=== PATIENT | female | born 1995 | race Two or more races ===

== ENCOUNTER 2024-09-10 20:00 | Emergency (ER) | payer MEDICAID, SELFPAY ==
[2024-09-10 20:01] VITALS: BMI 29.5
[2024-09-10 20:31] VITALS: BP 130/79; PULSE 85; RESP 18; TEMP 36.8; O2SAT 97; BMI 29.5
--- NOTE | 2024-09-10 20:59 | XR_ITS ---
Examination: Complete OB ultrasound greater than 14 weeks Date and time of exam: September 10, 2024 2130 hrs. Indications: Pelvic pain radiating to the back beginning yesterday getting worse Findings: Viable intrauterine single fetus with single amniotic sac presentation breech Cardiac motion 143 BPM Placenta anterior grade 1 no abruption Umbilical cord insertion seen Amniotic fluid index 14 cm Cervix 4.8 cm Right ovary 2.4 x 2.1 cm arterial flow Left ovary 5.2 x 4.8 cm 4.1 x 4.0 cm cyst. Composite estimated gestational age based on BPD, head circumference, abdominal circumference, femur length is 19 weeks 2 days Estimated weight 269 g. Survey of intracranial anatomy, spinal anatomy, abdominal anatomy, four-chamber heart performed with no abnormalities identified. Impression: Viable intrauterine gestation breech presentation.
--- NOTE | 2024-09-10 20:59 | PD.EDRME ---
Rapid Medical Screening Exam ON LICENSE OF [facility] Arrival date/time: 09/10/24 20:00 28F at approximately 18 weeks and with no significant PMH presents to ED with back/flank pain and dysuria. There is also some vaginal discharge, but patient denies concern for STD. There is also pain with intercourse. Chief Complaint: Back Pain/Injury Vital signs: Vital Signs Temperature 98.2 F 09/10/24 20:31 Pulse Rate 85 09/10/24 20:31 Respiratory Rate 18 09/10/24 20:31 Blood Pressure 130/79 09/10/24 20:31 Pulse Oximetry (%) 97 09/10/24 20:31 Oxygen Delivery Method Room Air 09/10/24 20:31
[2024-09-10 21:42] LABS: Collection Type, Urine Clean Catch
[2024-09-10 21:44] LABS: Basophils % (Auto) 0 % (0-2.5); Eosinophils # (Auto) 0.1 Thou/mm3 (0.0-0.5); Eosinophils % (Auto) 1 % (0-10); Hematocrit 33.3 % (36.0-46.0); Hemoglobin 11.4 g/dL (12.0-16.0); Immature Granulocytes % (Auto) 1 % (0-0); Immature Granulocytes Auto 0.07 Thou/mm3 (0.00-0.00); Lymphocytes # (Auto) 2.1 Thou/mm3 (1.0-4.8); Lymphocytes % (Auto) 19 % (10-50); Mean Corpuscular HGB Conc 34.2 g/dl (31.0-37.0); Mean Corpuscular Hemoglobin 29.8 pg (25.0-35.0); Mean Corpuscular Volume 87 fL (80-100); Monocytes # (Auto) 0.8 Thou/mm3 (0.0-0.8); Monocytes % (Auto) 7 % (0-12); Neutrophils # (Auto) 8.1 Thou/mm3 (1.8-7.7); Neutrophils % (Auto) 72 % (37-80); Nucleated Red Blood Cell % 0 /100 WBC (0); Platelet Count 247 Thou/mm3 (140-440); RDW Standard Deviation 40.8 fL (36.4-46.3); Red Blood Count 3.82 Miln/mm3 (4.00-5.20); White Blood Count 11.2 Thou/mm3 (3.6-11.0)
[2024-09-10 21:57] LABS: Bilirubin,Urine Negative (Negative); Blood,Urine 1+ (Negative); Clarity,Urine Turbid (Clear/Hazy); Color,Urine Lt-Yellow (Lt Yel-Yel); Glucose, Urine Negative (Negative); Ketones,Urine Negative (Negative); Leukocyte Esterase,Urine Negative (Negative); Nitrite,Urine Negative (Negative); Protein,Urine Trace (Neg - Trace); RBC,Urine 13 /hpf (0-3); Specific Gravity,Urine 1.019 (1.001-1.035); Squamous Epithelial Cell,Urine 10 /hpf (0-5); Urobilinogen,Urine Negative mg/dL (0.0-1.0); WBC,Urine 4 /hpf (0-5)
[2024-09-10 22:17] LABS: Alanine Aminotransferase 12 U/L (10-49); Albumin, Serum 3.9 gm/dL (3.5-5.0); Albumin/Globulin Ratio 1.6 (1.2-2.2); Alkaline Phosphatase 78 U/L (46-116); Anion Gap 5 (7-16); Aspartate Amino Transferase 17 U/L (0-34); BUN/Creatinine Ratio 14 Ratio (12-20); Bilirubin,Total 0.3 mg/dL (0.3-1.2); Blood Urea Nitrogen 7 mg/dL (9-23); Calcium 8.9 mg/dL (8.3-10.6); Carbon Dioxide 24.2 mMol/L (20.0-31.0); Chloride 106 mMol/L (98-107); Creatinine (Component) 0.5 mg/dL (0.6-1.3); Estimated Creatinine Clearance 153.4 mL/min (>60); Globulin 2.5 gm/dL (2.3-3.5); Glucose 105 mg/dL (74-106); Osmolality,Calculated 268 (275-295); Potassium 3.6 mMol/L (3.4-5.1); Sodium 135 mMol/L (136-145); Total Protein 6.4 gm/dL (5.7-8.2); eGFR > 60 See Note
[2024-09-10 22:45] LABS: Beta HCG,Quantitative 10026 mIU/mL (<5.0)
[2024-09-10 23:10] VITALS: BP 118/67; PULSE 80; RESP 18; TEMP 36.8; O2SAT 97
[2024-09-10 23:26] VITALS: BP 135/73; PULSE 76; RESP 18; TEMP 36.4; O2SAT 100
--- NOTE | 2024-09-11 00:35 | PD.EDBACK ---
ED Back Injury Pain RME/HPI General Chief Complaint: Back Pain/Injury Stated Complaint: BACK PAIN Arrival date/time: 09/10/24 20:00 Limitations: no limitations RME / HPI RME / HPI Narrative: 09/10/24 20:00 28F at approximately 18 weeks and with no significant PMH presents to ED with back/flank pain and dysuria. There is also some vaginal discharge, but patient denies concern for STD. There is also pain with intercourse. ---- Dr. Baker's Main ED Evaluation: 28yo female who is ~18 weeks gestation presents to the ED for a chief complaint of mid-back pain x 2 days. Patient states her pain has progressively been getting worse, reporting her pain is now throughout her back. She reports associated N/V. Denies any aggravating or alleviating factors. Denies any history of similar symptoms. No known allergies. Patient saw her OB, Dr. Chris, yesterday, and was advised it was a normal check-up. Related Data Previous Rx's ?Medication ?Instructions ?Recorded acetaminophen 325 mg capsule 650 mg (2 x 325 mg) PO Q6H PRN 03/27/22 fever or pain #60 caps dicyclomine 20 mg tablet 20 mg PO TID PRN pain #30 tabs 08/07/23 ciprofloxacin HCl 500 mg tablet 500 mg PO BID #14 tabs 12/20/23 (Cipro) Allergies Allergy/AdvReac Type Severity Reaction Status Date / Time No Known Allergies Allergy Unknown Verified 09/10/24 20:03 Review of Systems Review of Systems Systems Reviewed: All systems reviewed, normal except as documented Past Medical History Past Medical History NEUROLOGIC: Negative Neurological Disorders CARDIAC: Negative Cardiac Disorders or Congestive Heart Failure RESPIRATORY: Positive Asthma; Negative Chronic Obstructive Pulmonary Disease (COPD) GASTROINTESTINAL: Negative Gastrointestinal Disorders GENITOURINARY: Negative Genitourinary Disorders or Renal Disease MUSCULOSKELETAL: Negative Musculoskeletal Disorders ENDOCRINE: Negative Endocrine Disorders, Diabetes Mellitus Type 1 or Diabetes Mellitus Type 2 HEMATOLOGIC: Negative Blood Disorders OTHER HISTORY: Positive Hospitalization; Negative Autoimmune Disease, Down Syndrome, Developmental Delay, Shingles, Falls, Blood Transfusions, Anesthesia Reactions, Chemotherapy, MRSA, VRSA, Vancomycin-Resistant Enterococci or Cancer Family History FAMILY HISTORY: Negative Family Psychiatric Problems, Family Respiratory Disorders, Family Cardiac Disorders, Family Gastrointestinal Problems, Family Cancer, Family Surgery or Family Anesthesia Reaction Surgical History SURGICAL: Negative Section Social History SMOKING STATUS: Never smoker ED Exam General Limitations: Present no limitations General appearance: Present alert, in no apparent distress and other (sitting up in the gurney) Head Head exam: Present atraumatic Eye Eye exam: Present normal appearance, PERRL and EOMI ENT ENT exam: Present normal exam, normal oropharynx and mucous membranes moist Neck Neck exam: Present normal inspection, full ROM and trachea midline Chest Chest inspection: Present normal inspection and symmetric chest wall rise Respiratory Respiratory exam: Present normal lung sounds bilaterally Cardiovascular Cardiovascular exam: Present regular rate, normal rhythm and normal heart sounds Abdominal Exam Abdominal exam: Present soft, normal bowel sounds and other (gravid to the umbilicus area) Extremities Exam Extremities exam: Present normal inspection and full ROM Back Exam Back exam: Present normal inspection and full ROM; Absent CVA tenderness (R), CVA tenderness (L), rashes or other (midline tenderness) Neurological Exam Neurological exam: Present alert, oriented X3 and CN II-XII intact Psychiatric Psychiatric exam: Present normal affect and normal mood Skin Skin exam: Present warm, dry, intact and normal color Course Quality Measures none Orders Category Date Time Status US OB >= 14 weeks Fetus Stat Exams 09/10/24 20:59 Completed Beta HCG,Quantitative Stat Lab 09/10/24 21:20 Completed CBC Stat Lab 09/10/24 21:20 Completed CMP [Comprehensive Metabolic Panel] Stat Lab 09/10/24 21:20 Completed UA [Urinalysis] Stat Lab 09/10/24 21:22 Completed Urine Culture Stat Lab 09/10/24 21:22 Received Acetaminophen Tab [Tylenol ES Tab] Med 09/11/24 00:35 Discontinued 1,000 mg PO X1 ONE Vital Signs Vital signs: Vital Signs Temperature 98.2 F 09/10/24 20:31 Pulse Rate 85 09/10/24 20:31 Respiratory Rate 18 09/10/24 20:31 Blood Pressure 130/79 09/10/24 20:31 Pulse Oximetry (%) 97 09/10/24 20:31 Oxygen Delivery Method Room Air 09/10/24 20:31 Pulse ox is 97% on room air, which is normal according to my interpretation. Back Pain / Injury Patient data External records reviewed:: [facility] previous records (Per chart review, patient was seen here on 12/20/23 for UTI.) Clinical information provided by:: patient Social determinants that could affect healthcare access:: none Patient has the following chronic illnesses:: asthma How is presenting disease/condition affected by chronic disease/condition?: uneffected by Evaluation data The following diagnostics were reviewed and interpreted by me:: lab results Lab and/or radiology exams considered but not ordered:: none Interpretation Summary: WBC count is slightly elevated at 11.2, [place] [address], UA shows 13 RBCs, according to my interpretation. Medications / Prescriptions Medications or Prescriptions considered but not ordered:: none Medication administrations:: Medication Administration History Discontinued Medications Acetaminophen (Acetaminophen 500 Mg Tablet) 1,000 mg PO X1 ONE Stop: 09/11/24 00:36 Last Admin: 09/11/24 00:41 Dose: 1,000 mg Documented By: SF see above Consultations Consultation(s) initiated? (list below): No Diagnosis Differential diagnosis back pain/injury: renal colic, pyelonephritis and other (UTI) Most likely diagnosis given after review of the tests above:: see below Admission Indicated Admission indicated?: not indicated Admission Request Was there a request for admission?: No Disposition Plan Disposition Plan: Discharge Discharge Attestation Discharge Attestation: The patient and all family members were given an opportunity to ask questions and understood the discharge instructions. Discharge instructions specifically effects, indications for sooner follow up or return to the emergency department, and the expected course of current diagnosis. Patient condition: Stable Discharge Plan Plan Patient Disposition: HOME (Self Care) Patient condition on transfer: Stable Prescriptions/Referrals Prescriptions/Med Rec: No Action acetaminophen 325 mg capsule 650 mg PO Q6H PRN (Reason: fever or pain) Qty: 60 0RF dicyclomine 20 mg tablet 20 mg PO TID PRN (Reason: pain) Qty: 30 0RF ciprofloxacin HCl [Cipro] 500 mg tablet 500 mg PO BID Qty: 14 0RF Referrals: Charli Chris MD [Primary Care Provider] - In 1 week Problem List Clinical Impression: Back pain Patient/Caregiver Discharge Instructions Education Materials: How Your Back Works Additional Instructions: Follow-up with Dr. Chris on Saturday. Please return to emergency department sooner if you are having any increasing pain, you feel like you are in labor, a bloody show or you Print Language: Citizen Of [place] Stand Alone Forms: Sofi Award Info., Patient Portal Info Letter
[2024-09-11] MEDS: ACETAMINOPHEN 500 MG TABLET 1000 MG PO (00:41)
== END 2024-09-11 00:49 | disposition home or self-care (01) ==
PROVIDERS: Physician Assistant; Emergency Provider Emergency Medicine; PCP Obstetrics & Gynecology
DX: O26.892 Other specified pregnancy related conditions, second trimester (principal); M54.6 Pain in thoracic spine; R10.2 Pelvic and perineal pain; Z3A.18 18 weeks gestation of pregnancy
CPT/HCPCS: 36415; 76805; 80053; 81001; 84702; 85025; 87086; 99284; A9270

== ENCOUNTER 2024-09-19 11:35 | Observation (INO) | payer MEDICAID, SELFPAY ==
[2024-09-19 11:40] VITALS: RESP 16; TEMP 37.3; O2SAT 97
[2024-09-19 11:54] LABS: Collection Type, Urine Clean Catch
[2024-09-19 12:07] VITALS: BP 116/68; PULSE 78
[2024-09-19 12:10] VITALS: TEMP 36.6
[2024-09-19 12:28] LABS: Bacteria,Urine 1+; Bilirubin,Urine Negative (Negative); Blood,Urine 3+ (Negative); Color,Urine Yellow (Lt Yel-Yel); Glucose, Urine Negative (Negative); Ketones,Urine 1+ (Negative); Leukocyte Esterase,Urine Positive (Negative); Nitrite,Urine Negative (Negative); PH,Urine 6.5 (5.0-7.0); Protein,Urine 2+ (Neg - Trace); RBC,Urine 375 /hpf (0-3); Specific Gravity,Urine 1.042 (1.001-1.035); Squamous Epithelial Cell,Urine 4 /hpf (0-5); WBC,Urine 415 /hpf (0-5)
[2024-09-19 12:29] LABS: Clarity,Urine Turbid (Clear/Hazy)
--- NOTE | 2024-09-19 12:36 | XR_ITS ---
Examination: Complete OB ultrasound greater than 14 weeks Date and time of exam: September 19, 2024 1316 hrs. Indications: 20 weeks with onset vaginal bleeding today Findings: Viable intrauterine single fetus with single amniotic sac presentation transverse head maternal right Cardiac motion 137 BPM Placenta anterior grade 1 no abruption Umbilical cord insertion 3 vessel seen Amniotic fluid index 17.4 cm Cervix 5.5 cm Ovaries obscured by bowel gas. Composite estimated gestational age based on BPD, head circumference, abdominal circumference, femur length is 21 weeks 2 days Estimated weight 400 g. Survey of intracranial anatomy, spinal anatomy, abdominal anatomy, four-chamber heart performed with no abnormalities identified. Impression: Viable intrauterine gestation transverse presentation Placenta anterior grade 1 no abruption or previa.
[2024-09-19 12:37] VITALS: BP 107/63; PULSE 93
[2024-09-19] MEDS: cefTRIAXone 1,000 MG, LIDOCAINE 1% 20 ML 2.1 ML IM (12:56)
[2024-09-19 13:07] VITALS: BP 111/55; PULSE 78
[2024-09-19 13:37] VITALS: BP 114/56; PULSE 78
== END 2024-09-19 15:15 | disposition home or self-care (01) ==
PROVIDERS: Admitting Provider Obstetrics & Gynecology; PCP Obstetrics & Gynecology; Visit Provider Obstetrics & Gynecology
DX: O26.892 Other specified pregnancy related conditions, second trimester (principal); Z3A.20 20 weeks gestation of pregnancy; R25.2 Cramp and spasm; O32.2XX0 Maternal care for transverse and oblique lie, not applicable or unspecified
CPT/HCPCS: 59025; 59899; 76805; 81001; 96372; J0696; J3490

== ENCOUNTER 2024-11-26 12:32 | Emergency (ER) | payer MEDICAID, SELFPAY ==
[2024-11-26 12:54] VITALS: BP 108/70; PULSE 109; RESP 16; TEMP 37.8; O2SAT 96; BMI 31.4
--- NOTE | 2024-11-26 13:01 | EDNOTE_ITS ---
Upper Respiratory Inf. RME/HPI General Chief Complaint: Flu Like Symptoms Stated Complaint: BODY ACHES AND HEAD PAIN X 3 DAYS; CALLED OB Time Seen by Provider: 11/26/24 12:57 Source: patient Arrival date/time: 11/26/24 12:32 29-year-old female with no known medical history presents to the emergency room with a chief complaint of bodyaches, headache, and intermittent fevers x 3 days. Mode of arrival: ambulatory Limitations: no limitations Related Data Home Medications ?Medication ?Instructions ?Recorded ?Confirmed vits no.124-ferrous fum 1 tab PO QDAY 4 09/19/24 27 mg iron-folic acid 800 mcg tablet ( Vitamin) Previous Rx's ?Medication ?Instructions ?Recorded acetaminophen 325 mg capsule 650 mg (2 x 325 mg) PO QI D PRN 11/26/24 fever or pain 7 days #30 caps Allergies Allergy/AdvReac Type Severity Reaction Status Date / Time No Known Allergies Allergy Unknown Verified 11/26/24 12:36 Review of Systems Review of Systems Systems Reviewed: All systems reviewed, normal except as documented Constitutional Constitutional: Reports system reviewed and no additional complaints, except as documented, Reports body ache(s), Denies fatigue, Reports fever(s), Reports headache(s) and Reports weakness Eyes Eyes: Reports system reviewed and no additional complaints, except as documented, Denies blurry vision and Denies change in vision ENT Ears, Nose, Mouth, and Throat: Reports system reviewed and no additional complaints, except as documented, Denies otalgia, Reports headache(s), Denies nasal congestion, Denies throat swelling and Denies vertigo Cardiovascular Cardiovascular: Reports system reviewed and no additional complaints, except as documented, Denies chest pain, Denies dyspnea and Denies dyspnea on exertion Respiratory Respiratory: Reports system reviewed and no additional complaints, except as documented, Denies chest congestion, Denies cough, Denies dyspnea, Denies dyspnea on exertion and Denies wheezing Gastrointestinal Gastrointestinal: Reports system reviewed and no additional complaints, except as documented, Denies abdominal pain, Denies cramping, Denies nausea and Denies vomiting Genitourinary Genitourinary: Reports system reviewed and no additional complaints, except as documented Musculoskeletal Musculoskeletal: Reports system reviewed and no additional complaints, except as documented and Denies back pain Integumentary/Breasts Skin/Breast: Reports system reviewed and no additional complaints, except as documented and Denies wounds Neurologic Neurologic: Reports system reviewed and no additional complaints, except as documented, Denies confusion, Reports headache(s), Denies lack of coordination, Denies vertigo and Reports weakness Psychiatric Psychiatric: Reports system reviewed and no additional complaints, except as documented, Denies anxiety, Denies confusion, Denies depression, Denies paranoia, Denies suicidal ideation and Denies tactile hallucinations Endocrine Endocrine: Reports system reviewed and no additional complaints, except as documented and Denies fatigue Hematologic/Lymphatic Hematologic/Lymphatic: Reports system reviewed and no additional complaints, except as documented and Denies lymphadenopathy Allergic/Immunologic Allergic/Immunologic: Reports system reviewed and no additional complaints, except as documented, Denies throat swelling, Denies urticaria and Denies wheezing Past Medical History Past Medical History NEUROLOGIC: Negative Neurological Disorders CARDIAC: Negative Cardiac Disorders or Congestive Heart Failure RESPIRATORY: Positive Asthma; Negative Chronic Obstructive Pulmonary Disease (COPD) GASTROINTESTINAL: Negative Gastrointestinal Disorders GENITOURINARY: Negative Genitourinary Disorders or Renal Disease MUSCULOSKELETAL: Negative Musculoskeletal Disorders ENDOCRINE: Negative Endocrine Disorders, Diabetes Mellitus Type 1 or Diabetes Mellitus Type 2 HEMATOLOGIC: Negative Blood Disorders OTHER HISTORY: Positive Hospitalization; Negative Autoimmune Disease, Down Syndrome, Developmental Delay, Shingles, Falls, Blood Transfusions, Anesthesia Reactions, Chemotherapy, MRSA, VRSA, Vancomycin-Resistant Enterococci or Cancer Family History FAMILY HISTORY: Negative Family Psychiatric Problems, Family Respiratory Disorders, Family Cardiac Disorders, Family Gastrointestinal Problems, Family Cancer, Family Surgery or Family Anesthesia Reaction Surgical History SURGICAL: Negative Section Social History SMOKING STATUS: Never smoker ED Exam General Limitations: Present no limitations General appearance: Present alert and in no apparent distress Head Head exam: Present atraumatic, normocephalic and normal inspection Eye Eye exam: Present normal appearance, PERRL and EOMI ENT ENT exam: Present normal exam, normal oropharynx and mucous membranes moist Neck Neck exam: Present normal inspection, full ROM and trachea midline Chest Chest inspection: Present normal inspection and symmetric chest wall rise Respiratory Respiratory exam: Present normal lung sounds bilaterally; Absent respiratory distress, wheezes, stridor, accessory muscle use or prolonged expiratory phase Cardiovascular Cardiovascular exam: Present regular rate, normal rhythm and normal heart sounds Abdominal Exam Abdominal exam: Present soft and normal bowel sounds Extremities Exam Extremities exam: Present normal inspection and full ROM Back Exam Back exam: Present normal inspection and full ROM Neurological Exam Neurological exam: Present alert, oriented X3 and CN II-XII intact Psychiatric Psychiatric exam: Present normal affect and normal mood Skin Skin exam: Present warm, dry, intact and normal color Course Quality Measures none Orders Category Date Time Status Bedside COVID-19 Antigen Test NOW Care 11/26/24 13:00 Completed Bedside Influenza A&B Antigen Test NOW Care 11/26/24 13:00 Completed Acetaminophen Tab [Tylenol ES Tab] Med 11/26/24 13:00 Discontinued 1,000 mg PO X1 ONE Vital Signs Vital signs: Vital Signs Temperature 100.1 F 11/26/24 12:54 Pulse Rate 109 H 11/26/24 12:54 Respiratory Rate 16 11/26/24 12:54 Blood Pressure 108/70 11/26/24 12:54 Pulse Oximetry (%) 96 11/26/24 12:54 Oxygen Delivery Method Room Air 11/26/24 12:54 O2 saturation 96% within normal limits Upper Respiratory Infection MDM Narrative MDM Narrative:: 29-year-old female with no known medical history presents to the emergency room with a chief complaint of bodyaches, headache, and intermittent fevers x 3 days. The patient is hemodynamically stable and in no apparent distress. Patient is currently 29 weeks but she is denying any vaginal bleeding pelvic pain or any OB complaints. COVID-19 test was positive. Lung sounds are clear bilaterally with no wheezing stridor or any respiratory d istress. Patient was discharged and educated to follow-up with primary care provider and return to the emergency room for any evidence of worsening signs or symptoms. Patient data External records reviewed:: [facility] previous records Clinical information provided by:: patient Social determinants that could affect healthcare access:: none Patient has the following chronic illnesses:: No chronic illness How is presenting disease/condition affected by chronic disease/condition?: no chronic disease Evaluation data The following diagnostics were reviewed and interpreted by me:: lab results and radiology exam(s) Lab and/or radiology exams considered but not ordered:: Labs and radiology exams considered in order Interpretation Summary: N/A Medications / Prescriptions Medications or Prescriptions considered but not ordered:: Medication given Medication administrations:: Medication Administration History Discontinued Medications Acetaminophen (Acetaminophen 500 Mg Tablet) 1,000 mg PO X1 ONE Stop: 11/26/24 13:01 Last Admin: 11/26/24 13:28 Dose: 1,000 mg Documented By: Medication given Consultations Consultation(s) initiated? (list below): No Diagnosis Upper Respiratory Differential Diagnosis: upper respiratory infection, sinusitis, viral infection, influenza and other (COVID-19) Most likely diagnosis given after review of the tests above:: COVID-19 Admission Indicated Admission indicated?: not indicated Admission Request Was there a request for admission?: No Disposition Plan Disposition Plan: Discharge Discharge Attestation Discharge Attestation: The patient and all family members were given an opportunity to ask questions and understood the discharge instructions. Discharge instructions specifically effects, indications for sooner follow up or return to the emergency department, and the expected course of current diagnosis. Patient condition: Stable Discharge Plan Plan Patient Disposition: HOME (Self Care) Disposition Comment: Stable Prescriptions/Referrals Prescriptions/Med Rec: New acetaminophen 325 mg capsule 650 mg PO QID PRN (Reason: fever or pain) 7 Days Qty: 30 0RF No Action Vitamin 27 mg iron- 800 mcg Tablet 1 tab PO QDAY Problem List Clinical Impression: COVID-19 Patient/Caregiver Discharge Instructions Education Materials: 2019-nCoV Additional Instructions: Please follow-up with your [facility] in the next 24 to 48 hours. Your COVID-19 test was positive. Please continue to take Tylenol for fever management. Please increase your oral and fluid intake. For any evidence of worsening signs or symptoms please return to the emergency room immediately Print Language: [place] Stand Alone Forms: Sofi Award Info., Work/School Release, Patient Portal Info Letter PA/[employer] Supervising Physician PA/[employer] Supervising Physician: Dr. Cleveland
[2024-11-26] MEDS: ACETAMINOPHEN 500 MG TABLET 1000 MG PO (13:28)
== END 2024-11-26 13:36 | disposition home or self-care (01) ==
LOC: SERX 13:50
PROVIDERS: Emergency Provider Emergency Medicine
DX: U07.1 COVID-19 (principal)
CPT/HCPCS: 87400; 87811; 99283; A9270

== ENCOUNTER 2025-01-17 21:13 | Observation (INO) | payer MEDICAID, SELFPAY ==
[2025-01-17 21:25] VITALS: BP 124/60; PULSE 87; RESP 15; RESP 99; TEMP 36.9; BMI 31.8
[2025-01-17 21:28] VITALS: BP 124/60; PULSE 81; RESP 15; TEMP 36.9
[2025-01-17] MEDS: ONDANSETRON INJ 2 MG/ML INJ 2 ML 4 MG IV (22:03)
[2025-01-17] MEDS: RINGERS LACTATED 1000 ML 1,000 ML 999 ML IV (22:06)
[2025-01-17 22:21] LABS: Basophils % (Auto) 0 % (0-2.5); Eosinophils % (Auto) 0 % (0-10); Hematocrit 34.1 % (36.0-46.0); Hemoglobin 11.5 g/dL (12.0-16.0); Immature Granulocytes % (Auto) 0 % (0-0); Immature Granulocytes Auto 0.04 Thou/mm3 (0.00-0.00); Lymphocytes # (Auto) 1.1 Thou/mm3 (1.0-4.8); Lymphocytes % (Auto) 13 % (10-50); Mean Corpuscular HGB Conc 33.7 g/dl (31.0-37.0); Mean Corpuscular Hemoglobin 27.1 pg (25.0-35.0); Mean Corpuscular Volume 80 fL (80-100); Monocytes # (Auto) 0.4 Thou/mm3 (0.0-0.8); Monocytes % (Auto) 4 % (0-12); Neutrophils # (Auto) 7.4 Thou/mm3 (1.8-7.7); Neutrophils % (Auto) 83 % (37-80); Nucleated Red Blood Cell % 0 /100 WBC (0); Platelet Count 226 Thou/mm3 (140-440); Red Blood Count 4.24 Miln/mm3 (4.00-5.20); White Blood Count 8.9 Thou/mm3 (3.6-11.0)
[2025-01-17 22:34] LABS: Alanine Aminotransferase 16 U/L (10-49); Albumin, Serum 3.6 gm/dL (3.5-5.0); Albumin/Globulin Ratio 1.3 (1.2-2.2); Alkaline Phosphatase 169 U/L (46-116); Anion Gap 10 (7-16); Aspartate Amino Transferase 13 U/L (0-34); BUN/Creatinine Ratio 14 Ratio (12-20); Bilirubin,Total 0.6 mg/dL (0.3-1.2); Blood Urea Nitrogen 7 mg/dL (9-23); Calcium 8.5 mg/dL (8.3-10.6); Calcium (Corrected) 8.8 mg/dL (8.5-10.1); Carbon Dioxide 22.3 mMol/L (20.0-31.0); Chloride 104 mMol/L (98-107); Creatinine (Component) 0.5 mg/dL (0.6-1.3); Estimated Creatinine Clearance 158.2 mL/min (>60); Globulin 2.7 gm/dL (2.3-3.5); Glucose 93 mg/dL (74-106); Osmolality,Calculated 269 (275-295); Potassium 3.7 mMol/L (3.4-5.1); Sodium 136 mMol/L (136-145); Total Protein 6.3 gm/dL (5.7-8.2); eGFR > 60 See Note
== END 2025-01-17 23:30 | disposition home or self-care (01) ==
PROVIDERS: Admitting Provider Obstetrics & Gynecology; Visit Provider Obstetrics & Gynecology
DX: O21.2 Late vomiting of pregnancy (principal); O26.893 Other specified pregnancy related conditions, third trimester; R10.10 Upper abdominal pain, unspecified; Z3A.37 37 weeks gestation of pregnancy
CPT/HCPCS: 36415; 59025; 59899; 80053; 85025; J2405; J7120

== ENCOUNTER 2025-09-22 13:57 | Emergency (ER) | payer OTHER, MEDICAID, SELFPAY ==
[2025-09-22 13:57] VITALS: BMI 27.9
[2025-09-22 14:13] VITALS: BP 125/78; PULSE 84; RESP 16; TEMP 37.2; O2SAT 99
--- NOTE | 2025-09-22 14:20 | PD.EDFALL ---
ED Fall Injury RME/HPI General Chief Complaint: Fall Stated Complaint: FELL OFF A LADDER Time Seen by Provider: 09/22/25 14:10 Arrival date/time: 09/22/25 13:57 29-year-old female patient came in for evaluation regarding a right knee injury. Patient was working in the field picking up or ingest, fell off the ladder, and her leg got stuck on the ladder about 5 steps, resulting in the pain and instability. Patient is unable to ambulate due to pain. Denies any other injury incident. Happened few minutes prior to ER visit. No medication was given prior to ER visit. Related Data Home Medications ?Medication ?Instructions ?Recorded ?Confirmed vits no.[id number]-ferrous fum 1 tab PO QDAY 09/19/24 01/17/25 27 mg iron-folic acid 800 mcg tablet ( Vitamin) Previous Rx's ?Medication ?Instructions ?Recorded ibuprofen 600 mg tablet 600 mg PO Q8H PRN pain #30 tabs 09/22/25 Allergies Allergy/AdvReac Type Severity Reaction Status Date / Time No Known Allergies Allergy Unknown Verified 09/22/25 14:00 Review of Systems Review of Systems Narrative Review of Systems: Review of system reviewed and within normal limits except mentioned in HPI ED Exam Narrative Physical exam: VITAL SIGNS: Reviewed. GENERAL APPEARANCE: Alert and interactive, follows commands, no acute distress, HEAD AND FACE: Non-traumatic. ENT: PERRL, pink conjunctivitis, eyelid no trauma, Mucous membrane moist. NECK: Supple, nontender, no nuchal rigidity. CHEST: No tenderness, no crepitus, no paradoxical movement, no retractions. LUNGS: Clear, well ventilated, symmetric, no rales, no wheezing, no ronchi, no stridor, good breath sounds bilaterally. HEART: Regular rate, regular rhythm, no murmur, no gallops. ABDOMEN: Soft, positive bowel sounds, nondistended, no guarding, nontender, no rebound, no masses, RECTAL: Deferred. GENITAL: Deferred. NEUROLOGICAL: Gross motor function intact sensory function intact, Appropriate for age. MUSCULOSKELETAL: low back nontender, full range of motion. EXTREMITIES: Right knee injury, laxity noted on the right knee positive valgus test, limited range of motion. Mild swelling, distal neurovascular status intact. SKIN: Color pink, dry, no rash, no lacerations, no abrasions, no contusions. LYMPHATICS: Deferred. Course Quality Measures none Orders Category Date Time Status Apply knee immobilizer ONCE Care 09/22/25 14:25 Completed Crutches .NOW Care 09/22/25 14:[address] knee RT wo con Stat Exams 09/22/25 16:12 Completed XR knee RT 3V Stat Exams 09/22/25 14:25 Completed Ketorolac Inj [Toradol Inj] Med 09/22/25 14:25 Discontinued 30 mg IM X1 ONE Vital Signs Vital signs: Vital Signs Temperature 99.0 F 09/22/25 14:13 Pulse Rate 84 09/22/25 14:13 Respiratory Rate 16 09/22/25 14:13 Blood Pressure 125/78 09/22/25 14:13 Pulse Oximetry (%) 99 09/22/25 14:13 Oxygen Delivery Method Room Air 09/22/25 14:13 Fall MDM Narrative MDM Narrative:: 29-year-old female patient came in for evaluation regarding a right knee injury. Patient was working in the field picking up or ingest, fell off the ladder, and her leg got stuck on the ladder about 5 steps, resulting in the pain and instability. Patient is unable to ambulate due to pain. Denies any other injury incident. Happened few minutes prior to ER visit. No medication was given prior to ER visit. CT scan of the right knee showed Positive for acute comminuted avulsion fractures off the lateral tibial plateau, the largest 11 mm Patient was placed on knee immobilizer, supplied with crutches. Patient was advised to follow-up closely with Melecio Jeronimo MD and for referral to orthopedic surgeon. Patient agrees with the plan. Patient data External records reviewed:: None Clinical information provided by:: patient and family Social determinants that could affect healthcare access:: none Patient has the following chronic illnesses:: None How is presenting disease/condition affected by chronic disease/condition?: no chronic disease Evaluation data The following diagnostics were reviewed and interpreted by me:: radiology exam(s) Lab and/or radiology exams considered but not ordered:: None Interpretation Summary: See above Medications / Prescriptions Medications or Prescriptions considered but not ordered:: None Medication administrations:: Medication Administration History Discontinued Medications Ketorolac Tromethamine (Ketorolac Inj 30 Mg/Ml Vial) 30 mg IM X1 ONE Stop: 09/22/25 14:26 Last Admin: 09/22/25 15:22 Dose: 30 mg Documented By: NADIA Toradol Consultations Consultation(s) initiated? (list below): No Diagnosis Fall Differential Diagnosis: other (Knee sprain, avulsion fracture tibial plateau, knee pain, status post fall) Most likely diagnosis given after review of the tests above:: Knee sprain, avulsion fracture tibial plateau Admission Indicated Admission indicated?: not indicated Admission Request Was there a request for admission?: No Disposition Plan Disposition Plan: Discharge Discharge Attestation Discharge Attestation: The patient and all family members were given an opportunity to ask questions and understood the discharge instructions. Discharge instructions specifically effects, indications for sooner follow up or return to the emergency department, and the expected course of current diagnosis. Patient condition: Stable Discharge Plan Plan Patient Disposition: HOME (Self Care) Discharge Disposition comment: Stable Prescriptions/Referrals Prescriptions/Med Rec: New ibuprofen 600 mg tablet 600 mg PO Q8H PRN (Reason: pain) Qty: 30 0RF No Action Vitamin 27 mg iron- 800 mcg Tablet 1 tab PO QDAY Referrals: Narcisa Torres PA-C [Primary Care Provider] - In 1 week Problem List Clinical Impression: Knee sprain, Fall, Closed fracture of tibial plateau Patient/Caregiver Discharge Instructions Discharge Activity: activity as tolerated Education Materials: ED Knee Sprain Additional Instructions: Thank you for the opportunity for serving you today. You are stable for discharged . You are advised to: Follow-up with your Worker's Comp. in 1 to 2 days Return to ED for worsening of symptoms Increase oral fluids Take medication as prescribed Wear your knee immobilizer until cleared by orthopedic [employer] minimum of 3 weeks Elevate legs as needed ambulate with crutches Print Language: Syriac Stand Alone Forms: Sofi Award Info., Patient Portal Info Letter GELY/ASHLEY Supervising Physician GELY/ASHLEY Supervising Physician: MD Megha
--- NOTE | 2025-09-22 14:25 | XR_ITS ---
Examination: Knee, right, 3 views Technique: Knee AP, lateral, oblique 3 views Date and time of exam: September 22, 2025, 1456 hours INDICATION: Injury to the right knee today, patient heard a popping sound in the knee followed by pain. FINDINGS: Suspicious for 6 mm chip avulsion fracture off the lateral tibial metaphyseal region Moderate knee effusion No dislocation IMPRESSION: Recommend CT scan knee follow-up to exclude 6 mm avulsion fracture off the lateral tibial metaphyseal region
[2025-09-22 15:21] VITALS: BP 136/79; PULSE 87; RESP 16; TEMP 37.5; O2SAT 99
[2025-09-22] MEDS: KETOROLAC INJ 30 MG/ML VIAL IM (15:22)
--- NOTE | 2025-09-22 16:12 | XR_ITS ---
Examination: CT right knee, without contrast. 2-D sagittal reconstructions. 2-D coronal reconstructions. 3-D reconstructions. Date and time of exam: September 22, 2025, 1729 hours INDICATIONS: Patient fell off a ladder today with injury to the knee, knee pain CTDI: vol (mGy): 8.08 DLP: (mGycm): 223 Technique: Multiple 1.25 mm axial sections of the left knee without intravenous contrast have been obtained. 2-D sagittal and coronal reconstructions have been obtained. 3-D reconstructions have been obtained. Low dose protocols were performed. One or more of the following dose reduction techniques were used; automated exposure control, adjustment of the mA and/or KV according to patient size, use of iterative reconstruction technique. Findings: Distal femur and femoral condyles intact Patella intact moderate blood in the joint space Positive for acute comminuted avulsion fractures off the lateral tibial plateau, the largest 11 mm, axial image 80 Fibular head and neck intact IMPRESSION: Positive for acute comminuted avulsion fractures off the lateral tibial plateau, the largest 11 mm
[2025-09-22 20:42] VITALS: BP 132/77; PULSE 68; RESP 18; TEMP 36.7; O2SAT 98
== END 2025-09-22 20:43 | disposition home or self-care (01) ==
PROVIDERS: Emergency Provider Emergency Medicine; PCP Specialist
DX: S82.141A Displaced bicondylar fracture of right tibia, initial encounter for closed fracture (principal); W11.XXXA Fall on and from ladder, initial encounter
CPT/HCPCS: 29505; 73562; 73700; 96372; 99283; J1885